=== PATIENT | male | born 1970 | race Caucasian/White ===

== ENCOUNTER 2018-10-31 22:58 | Observation (INO) | payer OTHER ==
[2018-10-31 23:16] VITALS: BMI 32.6
--- NOTE | 2018-10-31 23:21 | PDOC ---
History of Present Illness - General Chief Complaint: Headache Stated Complaint: FAINT Time Seen by Provider: 10/31/18 23:16 History Source: Patient Exam Limitations: No Limitations - History of Present Illness Initial Comments: 48 yo M w a pmh of AFIB and an appendectomy presents to the ER with Left sided chest discomfort saying he believes he had a mini heart attack yesterday. He states that he has had Afib for many years and he is supposed to be taking amiodorone and elliquis for the Afib but he has not taken the meds for a long time because he doesn't like the way it feels. He admits to an episode of chest pain yesterday that was associated with radiation to his chin and down his left arm associated with left arm numbness and tingling. During the episode yesterday he states he felt nauseous but did not vomit, and was sweating much more than usual. Today he also experienced an episode of chest discomfort rated 3/10 in intensity and was also associated with mild radiation to his left jaw and down his left arm. He did not take any medications for it. He denies that the chest pain is brought on by physical activity. He endorses frequent episodes of shortness of breath whenever this chest discomfort comes on. He denies recent fevers, chills, infections, headache, blurry vision, neck pain , abdominal pain, diarrhea, constipation, dysuria, frequency, urgency, or vertigo. PCP: Trever Lee PSH: Appendectomy, Spinal fusion, R shoulder surgery Social Hx: Denies smoking, drinking, or other substance usage. Allergies: Azithromycin Past History - Past Medical History Allergies/Adverse Reactions: Allergies Allergy/AdvReac Type Severity Reaction Status Date / Time azithromycin [From Zithromax] Allergy Mild Hives Verified 11/03/14 06:26 Home Medications: Ambulatory Orders Oxycodone HCl/Acetaminophen [Oxycodone-Acetaminophen 10-325] 1 each PO QID PRN # 15 tablet 06/22/14 Cholecalciferol (Vitamin D3) [Vitamin D] 5,000 unit PO DAILY 10/24/14 Cyclobenzaprine HCl [Flexeril -] 10 mg PO DAILY PRN 10/24/14 Verapamil HCl [Verapamil ER] 120 mg PO DAILY 10/24/14 Oxycodone HCl/Acetaminophen [Percocet 5/325 -] 1 - 2 tab PO Q6H #20 tab Anemia: No Asthma: No Cancer: No Cardiac Disorders: Yes (afib dx 10/30) CVA: No COPD: No CHF: No Dementia: No Diabetes: No GI Disorders: No Disorders: No HTN: No Hypercholesterolemia: No Liver Disease: No Seizures: No Thyroid Disease: No - Surgical History Abdominal Surgery: No Appendectomy: No Cardiac Surgery: No Cholecystectomy: No Lung Surgery: No Neurologic Surgery: No Orthopedic Surgery: Yes (Right Rotator Cuff Repair) - Reproductive History Testicular Surgery: No Testicular Torsion: No - Suicide/Smoking/Psychosocial Hx Smoking History: Never smoked Have you smoked in the past 12 months: No Information on smoking cessation initiated: No Hx Alcohol Use: Yes ("occasional") Drug/Substance Use Hx: No Substance Use Type: None Hx Substance Use Treatment: No Review of Systems - Review of Systems Able to Perform ROS?: Yes Comments:: CONSTITUTIONAL: Absent: fever, no chills, no fatigue EYES: Absent: visual changes ENT: Absent: ear pain, no sore throat CARDIOVASCULAR: Present: chest pain, palpitations RESPIRATORY: Present: SOB Absent: cough GI: Present: Nausea Absent: abdominal pain, no vomiting, no constipation, no diarrhea GENITOURINARY: Absent: dysuria, no frequency, no hematuria MUSKULOSKELETAL: Absent: back pain, no arthralgia, no myalgia SKIN: Absent: rash NEURO: Absent: headache *Physical Exam - Vital Signs Last Vital Signs Temp Pulse Resp BP Pulse Ox 97.8 F 76 20 132/87 98 10/31/18 23:12 10/31/18 23:12 10/31/18 23:12 10/31/18 23:12 10/31/18 23:12 - Physical Exam Comments: GENERAL: Well-appearing, well-nourished. No apparent distress. HEENT: Normocephalic, atraumatic. PERRL, EOM intact. CARDIOVASCULAR: Normal S1, S2. Regular rate and rhythm. PULMONARY: No evidence of respiratory distress. Lungs clear to auscultation bilaterally. No wheezing, rales or rhonchi. ABDOMEN: Soft, non-distended, non-tender. EXTREMITIES: Normal ROM in all four extremities. No gross deformities. SKIN: Skin is sweaty. Warm. No rash NEUROLOGICAL: No focal neurological deficits. CN 2-12 grossly intact. Gait is normal without ataxia. Moderate Sedation - Procedure Monitoring Vital Signs: Procedure Monitoring Vital Signs Temperature 97.8 F 10/31/18 23:12 Pulse Rate 76 10/31/18 23:12 Respiratory Rate 20 10/31/18 23:12 Blood Pressure 132/87 10/31/18 23:12 O2 Sat by Pulse Oximetry (%) 98 10/31/18 23:12 Heart Score/ECG Review - History History: Highly suspicious - Electrocardiogram EKG: Normal - Age Age: 45-65 - Risk Factors Risk Factors Heart Score: Yes Positive family hx of cardiac disease Based on the list above the patient has:: 1-2 risk factors - Troponin Troponin: </= normal limit - Score Heart Score - Total: 4 - ECG Intrepretation Rhythm: Regular Rhythm - Belden Belden: Normal - ST and T Early Repolarization: No Non Specific ST-T Wave changes: No - ECG Impressions Normal ECG: Yes Non-specific ST Elevation: No ED Treatment Course - LABORATORY CBC & Chemistry Diagram: 11/01/18 00:03 11/01/18 00:03 Medical Decision Making - Medical Decision Making 48 yo M w a pmh of AFIB and an appendectomy presents to the ER with Left sided chest discomfort saying he believes he had a mini heart attack yesterday. He states that he has had Afib for many years and he is supposed to be taking amiodorone and elliquis for the Afib but he has not taken the meds for a long time because he doesn't like the way it feels. He admits to an episode of chest pain yesterday that was associated with radiation to his chin and down his left arm associated with left arm numbness and tingling. During the episode yesterday he states he felt nauseous but did not vomit, and was sweating much more than usual. Today he also experienced an episode of chest discomfort rated 3/10 in intensity and was also associated with mild radiation to his left jaw and down his left arm. He did not take any medications for it. He denies that the chest pain is brought on by physical activity. He endorses frequent episodes of shortness of breath whenever this chest discomfort comes on. VS: WNL DDx IBNLT: ACS/NM, Afib, arrhythmia, Pneumothorax, PNA, CVA/TIA, PE Plan: Labs, EKG, CXR, Cardiac monitoring, aspirin, re-assess. Labs unremarkable. Trop 1 negative. EKG - Normal sinus. HEART score - 4 - Will admit patient to Tele Obs for further cardio workup. *DC/Admit/Observation/Transfer Diagnosis at time of Disposition: Chest pain - Discharge Dispostion Condition at time of disposition: Stable Decision to Admit order: Yes - Referrals Referrals: Trever Bowman MD [Primary Care Provider] - - Patient Instructions - Post Discharge Activity
[2018-10-31] MEDS ORDERED: ASPIRIN 81 MG CHEWABLE TABLETS PO ONE (23:39)
[2018-10-31] MEDS ORDERED: ASPIRIN 81 MG CHEWABLE TABLETS ONE (23:57)
[2018-11-01 00:29] LABS: BASO % 0.5 % (0-2.0); EOS % 2.3 % (0-4.5); HEMATOCRIT 46.2 % (35.4-49); HEMOGLOBIN 16.5 GM/dL (11.7-16.9); LYMPH % 19.7 % (8-40); MCH 33.1 pg (25.7-33.7); MCHC 35.6 g/dl (32.0-35.9); MEAN CELL VOLUME 92.8 fl (80-96); MEAN PLT VOLUME 8.5 fl (7.5-11.1); NEUT % 68.5 % (42.8-82.8); PLATELET COUNT 257 K/MM3 (134-434); RBC 4.98 M/mm3 (4.00-5.60); RDW 13.4 % (11.9-15.9); WHITE BLOOD COUNT 10.2 K/mm3 (4.0-10.0)
[2018-11-01 00:41] LABS: INR 1.09 (0.83-1.09); PROTHROMBIN TIME (PATIENT) 12.9 SEC (9.7-13.0)
[2018-11-01 01:00] LABS: ALBUMIN 4.4 g/dl (3.4-5.0); ALK PHOS 67 U/L (45-117); ANION GAP 6 MMOL/L (8-16); BILIRUBIN,TOTAL 0.5 mg/dL (0.2-1); BLOOD UREA NITROGEN 18 mg/dL (7-18); CALCIUM 9.1 mg/dL (8.5-10.1); CHLORIDE 102 mmol/L (98-107); CO2 30 mmol/L (21-32); GLUCOSE,RANDOM 102 mg/dL (74-106); MAGNESIUM 2.4 mg/dL (1.8-2.4); POTASSIUM 4.1 mmol/L (3.5-5.1); SGOT/AST 21 U/L (15-37); SGPT/ALT 31 U/L (13-61); SODIUM 139 mmol/L (136-145); TOT PROT 7.3 g/dl (6.4-8.2)
--- NOTE | 2018-11-01 01:29 | PDOC ---
Attending Attestation - Resident Resident Name: Douglas Tran - ED Attending Attestation I have performed the following: I have examined & evaluated the patient, The case was reviewed & discussed with the resident, I agree w/resident's findings & plan, Exceptions are as noted - HPI HPI: 11/01/18 01:25 48 yo male with h/o afib, used to be on amiodarone stopped taking due to feeling off after taking it. here with c/o paresthesia left face and neck and left arm. in addition had left sided chest pain. pt states he becamse diaphoretic at the time. believes he has been in afib for last two weeks. describes frequent palpitations. no f/c no sob. positive family h/o CAD grandfather mi in 50's. pt states he had a stress test 5 yrs ago. no other complaints. no leg swelling. has been decreasing amount of caffeiene. scheduled for outpt eval for ablation 11/05 [facility]. - Physicial Exam PE: 11/01/18 01:29 awake alert lungs clear bilaterally heart rrr no mrg abd soft nt nd. ext wwp no edema. no calf tenderness. nuero alert oriented x 3 facies symmetric. speech clear. skin warm and dry. - Medical Decision Making 11/01/18 01:30 differential afib, angina, electrlyte abnormality, cervical radiculopathy causing arm paresthesia. anemia. plan labs ekg cxr . initial trop negativ.e cxr unremarkable. jose guadalupe acuna here. will admit to to story and risk factors for cad, also concerns for uncontrolle dafib, currently in sinus rhythm. Heart Score/ECG Review #1 General ECG Interpretation: Sinus Rhythm, Normal Rate, Normal Intervals, No acute ischemic changes
[2018-11-01] MEDS ORDERED: ACETAMINOPHEN 325 MG TABLET (FP) PO PRN (02:34)
--- NOTE | 2018-11-01 02:48 | HP ---
CHIEF COMPLAINT: chest pain and L facial pain PCP: Dr. Everett Cardio: Dr. Rodrigues Neuro: Dr. Jesse Lai HISTORY OF PRESENT ILLNESS: 48M w/ pmhx of a fib, GERD, carpal tunnel, peripheral neuropathy presented to the ED after complaints of L facial paresthesias and L sided chest discomfort. Pt reports that he recently saw the dentist and was found to have a tooth infection. He completed 5 day course of PO Amoxocillin, however since he still had persistent tooth pain, he took an extra 3 days of Amoxicillin that was originally prescribed for his daughter. Despite the full 8 days of antibiotics, he is still complaining of L sided jaw pain around the site of the tooth and now has a tingling feeling that runs from his L jaw down to his mandible as well as up to the L temporal region. A combination of both his facial paresthesia and persistent chest discomfort which he attributes to his a. fib is what prompted the patient to be evaluated in the ED. Pt states he has had ongoing chest discomfort/irritation for the past 3 days starting on the L side radiating down his L arm. He says the chest pain is worsened after eating. He also states he has been "in and out of a. fib" for the past couple of weeks and feels "anxiety and doom" when he has his a. fib episodes. He also is non-compliant with his a fib medication for the past 2 months as they made him feel as if he was trembling inside. Pt follows up with his fire engineer Dr. Rodrigues and states he wants to have an ablation done rather than stay on his medications. ER course was notable for: (1) WBC 10.2, Trop neg x1, EKG showed NSR, HR 68 bpm, QTc 442 ms (2) Aspirin 162 mg given (3) Recent Travel: Denies PAST MEDICAL HISTORY: A. 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 Family History: Grandfather- [place]; at 50 Mom- Breast/cervical cx, at 47 Allergies azithromycin [From Zithromax] Allergy (Mild, Verified 11/03/14 06:26) Hives HOME MEDICATIONS: Home Medications Medication Instructions Recorded Oxycodone HCl/Acetaminophen 1 each PO QID PRN #15 tablet 06/22/14 [Oxycodone-Acetaminophen 10-325] Cholecalciferol (Vitamin D3) 5,000 unit PO DAILY 10/24/14 [Vitamin D] Diazepam [Valium] 5 mg PO Q8H PRN 11/01/18 Gabapentin 600 mg PO TID 11/01/18 REVIEW OF SYSTEMS CONSTITUTIONAL: Denies fever, chills, diaphoresis, generalized weakness, malaise , loss of appetite, weight change HEENT: Admits to L sided tooth pain, does not chew food on L side; Denies rhinorrhea, nasal congestion, throat pain, throat swelling, visual changes CARDIOVASCULAR: Admits to chest discomfort radiating to L arm, admits to irregular heart rate; Denies syncope, palpitations, irregular heart rate, lightheadedness, peripheral edema RESPIRATORY: Denies cough, shortness of breath, dyspnea with exertion, orthopnea GASTROINTESTINAL: Denies abdominal pain, abdominal distension, nausea, vomiting , diarrhea, constipation GENITOURINARY: Denies dysuria, frequency, urgency, hesitancy, hematuria MUSCULOSKELETAL: Admits to chronic b/l LE peripheral neuropathy; Admits to L sided neck pain as well as chronic lumbar back pain NEUROLOGIC: Admits to increased sensation on L side of face and temporal region , Admits to headache and dizziness; Denies seizure, mental status changes, bladder or bowel incontinence PHYSICAL EXAMINATION Vital Signs - 24 hr 10/31/18 11/01/18 11/01/18 23:12 00:30 01:55 Temperature 97.8 F Pulse Rate 76 Pulse Rate [ 78 72 Apical] Respiratory 20 14 15 Rate Blood Pressure 132/87 Blood Pressure 106/70 104/76 [Right Arm] O2 Sat by Pulse 98 99 97 Oximetry (%) GENERAL: AAOx3. NAD. Comfortable, well-appearing male. Pleasant. HEENT: AT/NC. EOMI. MARIJA. Moist mucus membranes. NECK: Normal range of motion, supple. Palpable LN felt on L side of neck. LUNGS: CTA B/L. No wheezes/crackles noted. Symmetric chest rise. HEART: RRR. Normal S1, S2. No murmurs noted. ABDOMEN: Soft, nondistended. Slight TTP in mid-epigastric region. +BS in all 4 Qs. No masses noted. MUSCULOSKELETAL: Normal range of motion at all joints. No bony deformities or tenderness. No CVA tenderness. UPPER EXTREMITIES: 2+ pulses, warm, well-perfused. No cyanosis. No clubbing. No peripheral edema. LOWER EXTREMITIES: 2+ pulses, warm, well-perfused. No calf tenderness. No peripheral edema. NEUROLOGICAL: Normal speech. 5/5 muscle strength in u/l b/l extremities. Facial muscles intact. Tongue midline. SKIN: Warm, dry, normal turgor, no rashes or lesions noted, normal capillary refill. Laboratory Results - last 24 hr 11/01/18 11/01/18 11/01/18 00:03 00:03 00:03 WBC 10.2 H RBC 4.98 Hgb 16.5 Hct 46.2 D MCV 92.8 MCH 33.1 MCHC 35.6 RDW 13.4 Plt Count 257 D MPV 8.5 Absolute Neuts (auto) 7.0 Neutrophils % 68.5 Lymphocytes % 19.7 D Monocytes % 9.0 Eosinophils % 2.3 Basophils % 0.5 Nucleated RBC % 0 PT with INR 12.90 INR 1.09 PTT (Actin FS) Sodium 139 Potassium 4.1 Chloride 102 Carbon Dioxide 30 Anion Gap 6 L BUN 18 Creatinine 1.0 Creat Clearance w eGFR > 60 Random Glucose 102 Calcium 9.1 Magnesium 2.4 Total Bilirubin 0.5 AST 21 ALT 31 Alkaline Phosphatase 67 Creatine Kinase 89 Troponin I < 0.02 Total Protein 7.3 Albumin 4.4 11/01/18 00:03 WBC RBC Hgb Hct MCV MCH MCHC RDW Plt Count MPV Absolute Neuts (auto) Neutrophils % Lymphocytes % Monocytes % Eosinophils % Basophils % Nucleated RBC % PT with INR INR PTT (Actin FS) 28.4 Sodium Potassium Chloride Carbon Dioxide Anion Gap BUN Creatinine Creat Clearance w eGFR Random Glucose Calcium Magnesium Total Bilirubin AST ALT Alkaline Phosphatase Creatine Kinase Troponin I Total Protein Albumin CONSULT: Cardio- Dr. Ortiz IMAGING: * EKG: NSR, HR 76, QTc 436 ms, no ST-T changes * Head CT: pending ASSESSMENT/PLAN: 48M w/ pmhx of a fib, GERD, carpal tunnel, peripheral neuropathy presented to the ED after complaints of L facial paresthesias and L sided chest discomfort. #L facial paresthesia; likely 2/2 dental infection affecting nerve root; r/o stroke -Pt still complains of persistent pain around site of tooth; was only given Amoxicillin. Facial paresthesia may likely be related to tooth infection, however, since pt has been non-compliant with a fib medication, he has a high risk of stroke and so must r/o possible stroke etiology as cause of his symptoms. -Clindamycin 450 TID for anaerobic coverage; will need outpatient dental follow up -NIHSS 0. Head CT ordered; final results pending -Carotid duplex ordered -Lipid panel/ESR/CRP #Chest discomfort; likely due to atrial fib vs. GERD; r/o ACS -EKG unremarkable; NSR, HR [address]-T changes; Trops neg x1 -Pt admits to non-compliance with a fib meds; symptoms may be due to paroxsymal episodes Restart home meds: Amiodarone 200, Eliquis 500 BID -Tele monitoring -Cardio consult ordered -repeat trops in AM -CBC/CMP, Mag, Phos ordered #Peripheral neuropathy; 2/2 lumbar spinal fusion Cont home med: Gabapentin 600 TID #Prophylaxis -cont home Eliquis 5 BID #FEN -PO hydration -recheck lytes in AM -Regular diet dispo -admit to tele obs Visit type - Emergency Visit Emergency Visit: Yes ED Registration Date: 11/01/18 Care time: The patient presented to the Emergency Department on the above date and was hospitalized for further evaluation of their emergent condition. - New Patient This patient is new to me today: Yes Date on this admission: 11/02/18 - Critical Care Critical Care patient: No
--- NOTE | 2018-11-01 04:49 | PN ---
Teaching Attending Note Name of Resident: Diane Fletcher ATTENDING PHYSICIAN STATEMENT I saw and evaluated the patient. I reviewed the resident's note and discussed the case with the resident. I agree with the resident's findings and plan as documented. SUBJECTIVE: Seen and examined; please see resident note for further historical documentation. Briefly, this is a 48 y/o male presenting with multiple complaints. The first involves parasthesias in his L-face and L-arm. He has been treated as an outpatient for a dental infection (? abscess?) and has followup next week; has been on amoxicillin. Parasthesia started around the site of this infection several days ago and extended at first down towards his mandible but then up; he can swallow, no purulence, etc. It is the lower pre- molar area on the L-mandibular area and is tender to palpation. He also had parasthesias/pain to palpation along the entirety of his LUE extending from his neck to his shoulders; no loss of function or weakness, sensation is still in tact but feels tingly and will be painful to palpate if touched in said area. Never had this before, never saw anyone else for this, etc. He upfront tells us that he is very concerned he is having a stroke due to this due to his noncompliance with all his Afib medications. He also developed some L-sided somewhat typical, non-reproducible chest discomfort. Nothing makes it really better or worse, hasn't had similar pain in the past. Did happen somewhat at rest. Not his focus when encountered in the ER. No SOB, etc. States he had a stress test 5 years ago which was negative for any significant findings. He has afib and is scheduled for an ablation this [facility]; he has not taken his medications in months (and endorses compliance for 1-2 days only when he first got them) due to the fact that he doesn't like how they make him feel. He states he can tell when he is in and out of afib and that he has mostly been in it; he is noted to be in NSR in the ER. 10 sys ROS done and neagtive aside from HPI PMH, PSH, Family hx, Social hx reviewed Medication list pending reconciliation OBJECTIVE: VS, labs, imaging reviewed NAD, AAO, resting comfortably in bed RRR s1/2 no mgr; NSR noted Lungs CTAB w/ no fnd NIHSS 0; CN2-12 wnl, no fnd NC AT EOMI PERRLA NT ND +BS Normal mood, appropriate behavior EKG Reviewed CXR Reviewed No acute findings head CT prelim read ASSESSMENT AND PLAN: Patient presents with parasthesias in L-face and L-arm; recent treatment for dental infection for which he is still symptomatic and this is in said distribution. He also is having some chest discomfort and has been off all his afib medications. 1) Parasthesias, face and arm -Unclear etiology. CVA less likely but given untreated afib he is at increased risk so will need to work this up. Place him on tele, neuro checks and seizure precautions. Echo, carotid dopplers, MRI. Consider neurology consultation. -Would consider, especially for the facial parasthesias, possible relation with his dental infection. Has been on abx but from what he described I am not convinced he was completely covered (need to check old records but tells me he took augmentin, then took someone else's augmentin for ~7 days). I changed his abx to clinda and we should discuss the case with his dentist in the AM. -For the arm, can consider musculoskeletal cause if neuro workup negative. 2) Chest Pain in Adult -Monitor on telemetry, trend troponin, repeat EKG. Nitro if further chest pain. 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 FENA -PO flui
[2018-11-01] MEDS ORDERED: CLINDAMYCIN HCL 150 MG CAPSULE (FP) PO SCH (06:00)
[2018-11-01] MEDS: GABAPENTIN 300 MG CAPSULE (FP) PO SCH ×2 (06:55→16:41)
[2018-11-01 09:04] LABS: BASO % 0.7 % (0-2.0); HEMATOCRIT 43.6 % (35.4-49); HEMOGLOBIN 15.6 GM/dL (11.7-16.9); LYMPH % 17.7 % (8-40); MCHC 35.9 g/dl (32.0-35.9); MEAN PLT VOLUME 8.2 fl (7.5-11.1); MONO % 8.8 % (3.8-10.2); NEUT % 69.8 % (42.8-82.8); PLATELET COUNT 233 K/MM3 (134-434); RBC 4.74 M/mm3 (4.00-5.60); RDW 13.3 % (11.9-15.9); WHITE BLOOD COUNT 9.1 K/mm3 (4.0-10.0)
[2018-11-01 09:36] LABS: ALBUMIN 4.2 g/dl (3.4-5.0); ALK PHOS 60 U/L (45-117); ANION GAP 4 MMOL/L (8-16); BILIRUBIN,TOTAL 0.8 mg/dL (0.2-1); BLOOD UREA NITROGEN 19 mg/dL (7-18); CALCIUM 8.9 mg/dL (8.5-10.1); CHLORIDE 105 mmol/L (98-107); CO2 30 mmol/L (21-32); GLUCOSE,RANDOM 101 mg/dL (74-106); MAGNESIUM 2.1 mg/dL (1.8-2.4); PHOSPHOROUS 4.3 mg/dL (2.5-4.9); POTASSIUM 4.3 mmol/L (3.5-5.1); SGOT/AST 14 U/L (15-37); SGPT/ALT 25 U/L (13-61); SODIUM 139 mmol/L (136-145); TOT PROT 6.9 g/dl (6.4-8.2)
--- NOTE | 2018-11-01 09:46 | EKG ---
Test Reason : Blood Pressure : / mmHG Vent. Rate : 076 BPM Atrial Rate : 076 BPM P-R Int : 158 ms QRS Dur : 076 ms QT Int : 388 ms P-R-T Axes : 037 065 034 degrees QTc Int : 436 ms NORMAL SINUS RHYTHM NORMAL ECG WHEN COMPARED WITH ECG OF 17-JUN-2014 22:20, QT HAS SHORTENED Confirmed by CONCHITA BELL MD ([id number]) on 11/01/2018 9:45:34 AM Referred By: Confirmed By:CONCHITA BELL MD
[2018-11-01] MEDS ORDERED: AMIODARONE HCL 200 MG TABLET (FP) PO SCH (10:00)
[2018-11-01] MEDS ORDERED: CHOLECALCIFEROL (VITAMIN D3) 1,000 UNIT TABLET (FP) PO SCH (10:00)
[2018-11-01] MEDS ORDERED: APIXABAN 5 MG TABLET PO SCH (10:00)
[2018-11-01] MEDS ORDERED: APIXABAN 5 MG TABLET PO ONE (10:42)
--- NOTE | 2018-11-01 11:47 | CON.CARD ---
Cardiology Consult (text) - Consultation Consultation Note: cc: cp, arm pain hpi: 48 m hx pafib, neuropathy, multiple spine surgeries, here with cp, arm pain. Pt with chronic neuropathy pains, yesterday felt similar nerve pain in left arm and left chest. Arm was tender to touch. Had recent tooth infection and on abx and also felt shooting pains in left face and head. No sob dizzy loc pnd orthopnea le edema. Feels palps when has afib. 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 pmh: per hpi psh: per hpi, appendectomy social: no tob fam: no premature cad, scd ros: per hpi; no nvd, vision change, gib hematuria dysuria wt loss meds: Home Medications Medication Instructions Recorded Oxycodone HCl/Acetaminophen 1 each PO QID PRN #15 tablet 06/22/14 [Oxycodone-Acetaminophen 10-325] Cholecalciferol (Vitamin D3) 5,000 unit PO DAILY 10/24/14 [Vitamin D] Amiodarone HCl 200 mg PO DAILY 11/01/18 Apixaban [Eliquis] 5 mg PO BID 11/01/18 Diazepam [Valium] 5 mg PO Q8H PRN 11/01/18 Gabapentin 600 mg PO TID 11/01/18 pe: Vital Signs Period Temp Pulse Resp BP Sys/Moreno Pulse Ox Last 24 Hr 97.8 F-98.3 F 68-78 14-20 104-132/70-87 97-99 nad no jdv rrr s1s2 no mrg cta bl nl eff aaox3 no le e/c/c abd nt nd pos bs no jaundice diaphoresis pos dp pt no carotid bruits Current Medications Generic Name Dose Route Start Last Admin Trade Name Freq PRN Reason Stop Dose Admin Acetaminophen 650 mg 11/01/18 02:34 Tylenol - PO Q4H PRN HEADACHE Amiodarone HCl 200 mg 11/01/18 10:00 11/01/18 10:49 Cordarone - PO 200 mg DAILY WALLY Administration Apixaban 5 mg 11/01/18 10:00 11/01/18 10:51 Eliquis - PO 5 mg BID WALLY Administration Cholecalciferol 5,000 unit 11/01/18 10:00 11/01/18 10:52 Vitamin D3 - PO Not Given DAILY [facility] Gabapentin 600 mg 11/01/18 06:15 11/01/18 06:55 Neurontin - PO 600 mg TID WALLY Administration Rosuvastatin Calcium 40 mg 11/01/18 22:00 Crestor - PO HS WALLY Laboratory Last Values WBC 9.1 K/mm3 (4.0-10.0) 11/01/18 08:55 RBC 4.74 M/mm3 (4.00-5.60) 11/01/18 08:55 Hgb 15.6 GM/dL (11.7-16.9) 11/01/18 08:55 Hct 43.6 % (35.4-49) 11/01/18 08:55 MCV 92.0 fl (80-96) 11/01/18 08:55 MCH 33.0 pg (25.7-33.7) 11/01/18 08:55 MCHC 35.9 g/dl (32.0-35.9) 11/01/18 08:55 RDW 13.3 % (11.9-15.9) 11/01/18 08:55 Plt Count 233 K/MM3 (134-434) 11/01/18 08:55 MPV 8.2 fl (7.5-11.1) 11/01/18 08:55 Absolute Neuts (auto) 6.3 K/mm3 (1.5-8.0) 11/01/18 08:55 Neutrophils % 69.8 % (42.8-82.8) 11/01/18 08:55 Lymphocytes % 17.7 % (8-40) 11/01/18 08:55 Monocytes % 8.8 % (3.8-10.2) 11/01/18 08:55 Eosinophils % 3.0 % (0-4.5) 11/01/18 08:55 Basophils % 0.7 % (0-2.0) 11/01/18 08:55 Nucleated RBC % 0 % (0-0) 11/01/18 08:55 ESR 2 mm/hr (0-10) 11/01/18 08:55 PT with INR 12.90 SEC (9.7-13.0) 11/01/18 00:03 INR 1.09 (0.83-1.09) 11/01/18 00:03 PTT (Actin FS) 28.4 SECONDS (25.2-36.5) 11/01/18 00:03 Sodium 139 mmol/L (136-145) 11/01/18 08:55 Potassium 4.3 mmol/L (3.5-5.1) 11/01/18 08:55 Chloride 105 mmol/L (98-107) 11/01/18 08:55 Carbon Dioxide 30 mmol/L (21-32) 11/01/18 08:55 Anion Gap 4 MMOL/L (8-16) L 11/01/18 08:55 BUN 19 mg/dL (7-18) H 11/01/18 08:55 Creatinine 1.0 mg/dL (0.55-1.3) 11/01/18 08:55 Creat Clearance w eGFR > 60 (>60) 11/01/18 08:55 Random Glucose 101 mg/dL (74-106) 11/01/18 08:55 Hemoglobin A1c % 5.6 % (4.2-6.3) 11/01/18 08:30 Calcium 8.9 mg/dL (8.5-10.1) 11/01/18 08:55 Phosphorus 4.3 mg/dL (2.5-4.9) 11/01/18 08:55 Magnesium 2.1 mg/dL (1.8-2.4) 11/01/18 08:55 Total Bilirubin 0.8 mg/dL (0.2-1) 11/01/18 08:55 AST 14 U/L (15-37) L 11/01/18 08:55 ALT 25 U/L (13-61) 11/01/18 08:55 Alkaline Phosphatase 60 U/L (45-117) 11/01/18 08:55 Creatine Kinase 89 U/L (26-308) 11/01/18 00:03 Troponin I < 0.02 ng/ml (0.00-0.05) 11/01/18 08:55 C-Reactive Protein 0.3 MG/DL (0.00-0.3) 11/01/18 08:55 Total Protein 6.9 g/dl (6.4-8.2) 11/01/18 08:55 Albumin 4.2 g/dl (3.4-5.0) 11/01/18 08:55 Triglycerides 72 mg/dL (0-150) 11/01/18 08:55 Cholesterol 153 mg/dL (50-200) 11/01/18 08:55 Total LDL Cholesterol 98 mg/dL (5-100) 11/01/18 08:55 HDL Cholesterol 43 mg/dL (40-60) 11/01/18 08:55 TSH 1.26 uIU/ml (0.358-3.74) 11/01/18 08:55 ecg: sr, nl intervals, no ischemic changes cxr: clear lungs a/p: 48 m hx pafib, neuropathy, multiple spine surgeries, here with cp, arm pain. cp: -atypical, seems neuropathy related -no signs acs, ce's neg, ecg benign -echo pending, if benign ok for dc from cardiac pov pafib: -in sr -cont home milagro and luz -pt has appt this week with EP for eval for possible ablation neuropathy, facial symptoms: -head ct w/o acute findings -neuro consulted for cva eval
--- NOTE | 2018-11-01 11:58 | PN ---
Physical Exam: SUBJECTIVE: Patient seen and examined at bedside. no acute events since admission. pt still c/o paresthesia in L temporal forehead. denies fever, chills , cp, sob, n/v/d, urinary sxs. OBJECTIVE: Vital Signs Period Temp Pulse Resp BP Sys/Moreno Pulse Ox Last 24 Hr 97.8 F-98.3 F 68-78 14-20 104-132/70-87 97-99 GENERAL: AAOx3. NAD. Comfortable, well-appearing male. Pleasant. HEENT: AT/NC. EOMI. MARIJA. MMM NECK: Normal range of motion, supple. LUNGS: CTAB HEART: RRR. Normal S1, S2. No murmurs noted. S4? extra beat/gallop? ABDOMEN: Soft, NTND +BS. No masses noted. MUSCULOSKELETAL: Normal range of motion at all joints. No bony deformities or tenderness. No CVA tenderness. UPPER EXTREMITIES: 2+ pulses, warm, well-perfused. No cyanosis. No clubbing. No peripheral edema. LOWER EXTREMITIES: 2+ pulses, warm, well-perfused. No calf tenderness. No peripheral edema. NEUROLOGICAL: CN II-XII intact. Normal speech. 5/5 muscle strength in u/l b/l extremities. decreased sensation in LLE (baseline) SKIN: Warm, dry, normal turgor, no rashes or lesions noted, normal capillary refill. Laboratory Results - last 24 hr 11/01/18 11/01/18 11/01/18 00:03 00:03 00:03 WBC 10.2 H RBC 4.98 Hgb 16.5 Hct 46.2 D MCV 92.8 MCH 33.1 MCHC 35.6 RDW 13.4 Plt Count 257 D MPV 8.5 Absolute Neuts (auto) 7.0 Neutrophils % 68.5 Lymphocytes % 19.7 D Monocytes % 9.0 Eosinophils % 2.3 Basophils % 0.5 Nucleated RBC % 0 ESR PT with INR 12.90 INR 1.09 PTT (Actin FS) Sodium 139 Potassium 4.1 Chloride 102 Carbon Dioxide 30 Anion Gap 6 L BUN 18 Creatinine 1.0 Creat Clearance w eGFR > 60 Random Glucose 102 Hemoglobin A1c % Calcium 9.1 Phosphorus Magnesium 2.4 Total Bilirubin 0.5 AST 21 ALT 31 Alkaline Phosphatase 67 Creatine Kinase 89 Troponin I < 0.02 C-Reactive Protein Total Protein 7.3 Albumin 4.4 Triglycerides Cholesterol Total LDL Cholesterol HDL Cholesterol TSH 11/01/18 11/01/18 11/01/18 00:03 08:30 08:55 WBC RBC Hgb Hct MCV MCH MCHC RDW Plt Count MPV Absolute Neuts (auto) Neutrophils % Lymphocytes % Monocytes % Eosinophils % Basophils % Nucleated RBC % ESR PT with INR INR PTT (Actin FS) 28.4 Sodium 139 Potassium 4.3 Chloride 105 Carbon Dioxide 30 Anion Gap 4 L BUN 19 H Creatinine 1.0 Creat Clearance w eGFR > 60 Random Glucose 101 Hemoglobin A1c % 5.6 Calcium 8.9 Phosphorus 4.3 Magnesium 2.1 Total Bilirubin 0.8 AST 14 L ALT 25 Alkaline Phosphatase 60 Creatine Kinase Troponin I < 0.02 C-Reactive Protein 0.3 Total Protein 6.9 Albumin 4.2 Triglycerides Cholesterol Total LDL Cholesterol HDL Cholesterol TSH 11/01/18 11/01/18 11/01/18 08:55 08:55 08:55 WBC 9.1 RBC 4.74 Hgb 15.6 Hct 43.6 MCV 92.0 MCH 33.0 MCHC 35.9 RDW 13.3 Plt Count 233 MPV 8.2 Absolute Neuts (auto) 6.3 Neutrophils % 69.8 Lymphocytes % 17.7 Monocytes % 8.8 Eosinophils % 3.0 Basophils % 0.7 Nucleated RBC % 0 ESR 2 PT with INR INR PTT (Actin FS) Sodium Potassium Chloride Carbon Dioxide Anion Gap BUN Creatinine Creat Clearance w eGFR Random Glucose Hemoglobin A1c % Calcium Phosphorus Magnesium Total Bilirubin AST ALT Alkaline Phosphatase Creatine Kinase Troponin I C-Reactive Protein Total Protein Albumin Triglycerides 72 Cholesterol 153 Total LDL Cholesterol 98 HDL Cholesterol 43 TSH 1.26 Active Medications Generic Name Dose Route Start Last Admin Trade Name Freq PRN Reason Stop Dose Admin Acetaminophen 650 mg 11/01/18 02:34 Tylenol - PO Q4H PRN HEADACHE Amiodarone HCl 200 mg 11/01/18 10:00 11/01/18 10:49 Cordarone - PO 200 mg DAILY WALLY Administration Apixaban 5 mg 11/01/18 10:00 11/01/18 10:51 Eliquis - PO 5 mg BID WALLY Administration Cholecalciferol 5,000 unit 11/01/18 10:00 11/01/18 10:52 Vitamin D3 - PO Not Given DAILY [facility] Gabapentin 600 mg 11/01/18 06:15 11/01/18 06:55 Neurontin - PO 600 mg TID WALLY Administration Rosuvastatin Calcium 40 mg 11/01/18 22:00 Crestor - PO HS WALLY ASSESSMENT/PLAN: 48M w/ pmhx of a-fib, GERD, carpal tunnel, peripheral neuropathy 2/2 s/p L spinal fusion, recent dental infx s/p augmentin, p/w L facial paresthesias and L sided chest discomfort x3d. #L facial paresthesia; possibly 2/2 resolving dental infection affecting nerve root vs symptomatic from A-fib vs TIA. Pt p/w persistent pain around site of tooth. however, since pt has been non- compliant with a fib medication, he has a high risk of stroke and so must r/o possible stroke etiology as cause of his symptoms. stroke less likely given grossly nl neuro exam and w/o deficits in a clear stroke like pattern and neg imaging so far. -s/p Aspirin 162 mg in ED -dc Clindamycin pt not septic and recently finished abx course; will need outpatient dental follow up -NIHSS 0. Head CT neg, CXR nl -Carotid duplex ordered -MRI brain and c-spine -pt refusing -echo nl, EF 55-60% -Lipid panel wnl -ESR/CRP wnl -A1c 5.6 -neuro consult -speech swallow -PT eval -start crestor 40 HS #Chest discomfort; likely due to atrial fib vs. GERD; r/o ACS -s/p Aspirin 162 mg in ED -EKG unremarkable; NSR, HR [address]-T changes; Trops neg x2 -Pt admits to non-compliance with a fib meds; symptoms may be due to paroxsymal episodes -c/w home meds: Amiodarone 200, Eliquis 500 BID -Tele monitoring -Cardio consult -TSH wnl GERD protonix 40qd #Peripheral neuropathy; 2/2 lumbar spinal fusion Cont home med: Gabapentin 600 TID #Prophylaxis -cont home Eliquis 5 BID #FEN -PO hydration -replete prn -Regular diet dispo -tele obs for at least 48 hr to r/o CVA/TIA Visit type - Emergency Visit Emergency Visit: Yes ED Registration Date: 11/01/18 Care time: The patient presented to the Emergency Department on the above date and was hospitalized for further evaluation of their emergent condition. - New Patient This patient is new to me today: Yes Date on this admission: 11/01/18 - Critical Care Critical Care patient: No
--- NOTE | 2018-11-01 12:24 | ECHO ---
Name: ROMAINE PEACOCK Exam:Adult Echocardiogram Study Date: 11/01/2018 10:50 AM Age: 48 yrs Reason For Study: Chest pain Height: 68 in Weight: 215 lb BSA: 2.1 m2 MMode/2D Measurements & Calculations IVSd: 1.0 cm Ao root diam: 3.2 cm LVIDd: 5.3 cm LA dimension: 4.0 cm LVIDs: 3.6 cm LVPWd: 1.0 cm EDV(Teich): 133.6 ml LVOT diam: 2.4 cm ESV(Teich): 54.3 ml Doppler Measurements & Calculations MV E max russel: 63.7 cm/sec Ao V2 max: 82.7 cm/sec MV A max russel: 36.0 cm/sec Ao max P.7 mmHg MV E/A: 1.8 MV dec time: 0.20 sec VINAY(V,D): 3.4 cm2 LV V1 max P.7 mmHg TR max russel: 221.3 cm/sec LV V1 max: 64.5 cm/sec TR max P.6 mmHg Med Peak E' Russel: 6.1 cm/sec Med E/e': 10.4 Lat Peak E' Russel: 10.2 cm/sec Lat E/e': 6.2 Procedure A complete two-dimensional transthoracic echocardiogram was performed (2D, M-mode, Doppler and color flow Doppler). Left Ventricle The left ventricular size, thickness and function are normal. The left ventricular ejection fraction is normal. Ejection Fraction = 55-60%. No regional wall motion abnormalities noted. Right Ventricle The right ventricle is normal in size and function. Atria Normal left and right atrial size and function. Mitral Valve There is no mitral regurgitation noted. Tricuspid Valve There is trace tricuspid regurgitation. Right ventricular systolic pressure is normal. Aortic Valve No hemodynamically significant valvular aortic stenosis. No aortic regurgitation is present. Pulmonic Valve There is no pulmonic valvular regurgitation. Great Vessels The aortic root is normal size. Pericardium/Pleura There is no pericardial effusion. Interpretation Summary The left ventricular size, thickness and function are normal The right ventricle is normal in size and function. There is trace tricuspid regurgitation. MD Juan José Pulido 11/01/2018 12:23 PM
--- NOTE | 2018-11-01 13:24 | PN ---
Teaching Attending Note Name of Resident: David Lizarraga ATTENDING PHYSICIAN STATEMENT I saw and evaluated the patient. I reviewed the resident's note and discussed the case with the resident. I agree with the resident's findings and plan as documented. SUBJECTIVE:continues to have parathesia in the L temporal forehead. CP resolved. denies Cp, SOB, fever, chills, OBJECTIVE: Last Vital Signs Temp Pulse Resp BP Pulse Ox 98.3 F 68 16 112/77 98 11/01/18 07:03 11/01/18 07:03 11/01/18 07:03 11/01/18 07:03 11/01/18 07:03 General NAD ASSESSMENT AND PLAN: 48yo M with PMH afib not compliant with medications presenting with L facial numbness and CP 1. CP-most likely feeling uncontrolled afib. low risk for ACS. trop neg x2. echo with no WMA. seen by cardio no further workup at this time 2. Facial parathesia- low suspicion for CVA. pt now changed his story that he was not having numbness down his arm but pain when he had the CP last night. MRI was offered which he refused. Neuro consulted and dx with trigeminal neuralgia and started on gabapentin. 3. Afib-not compliant at home. low [id number] score. possibly on eliquis due to anticipated ablation. encouraged to resume home medications and f/u with cardio. has been discussion about ablation in the future. TSH WNL. cardio on board 4. d/c home with cardio and neuro follow up
--- NOTE | 2018-11-01 14:15 | CONSULT ---
Consult - text type - Consultation Consultation Note: NEUROLOGY CONSULT APPRECIATED: Events reviewed and discussed with staff. Cardiology consult read and appreciated. 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 He is here after worsening "tingling" sensation in his left arm and L cheek radiating up to the top of his L yazdanism x 1 week. Yesterday evening, he felt sudden, brief "whole body electricity-shock" sensation mainly in his neck that brought him to the hospital. He attributes it to not taking his eliquis or amiodorane for his afib over that time. He reports he saw his dentist and was told he had an infection in the tooth and was provided antibiotics. He notes it has started to reside and remains just in the L cheek and is worsened by chewing. PMHX: HTN, Afib, Chronic neck/back pain, "B/L CTS" Medications: cholecalciferol 5,000 units daily, verapamil, cyclobenzaprine, oxycodone (seeing neurology/pain management (Dr. Jesse Lai) Surgical hx: LS Laminectomy x 2 (Dr. Danny Brito) with residual left ankle weakness. R shoulder surgery Head CT: normal study Carotid duplex: no significant stenosis EKG: normal sinus rhythm Review of systems significant for migraines since adolescence attributed to " too much salt" or "perfumes." He reports a work-related injury at 05/22 site November 2012 with worsening of migraines, new onset neck, low back pain and paraesthesia. He attributes his now chronic, daily neck pain to his headaches that are usually in the occipital region that occur daily. He notes at least 3 times a year, they cause photophobia, phonophobia, nausea, vomiting, kinesiophobia and can last up to 3 days. He reports "tingling" sensations in his hands and legs, now constant in nature and awakening him from sleep. NARINDER: (-)bruit, Cor reg, reduced ROM of neck, (-) SLR, (-) TMJ tenderness, (+/-) Tinel's R wrist NEURO EXAM: Mentation/Speech: Ox [facility]. October. 2018 [facility] PMURT 11/11 recall at 3. CNII-CNXII: EOMI without nystagmus. Full watts appreciated. Motor: No drift. Strength preserved in ABP and intrinsics B/L. L DF 4-/5. Reflexes normal but L AJ absent. Toes downgoing Coordination: No FTN dystaxia. Romberg - Sensation: Reduced sensation to vibration up to left bryant. Gait: Normal, difficulty on toes L >R. Can walk on heels and tandem gait without difficulty. Impression: Post-traumatic Migraines Residual Left L5 radiculopathy Probable Restless Limbs Syndrome (RLS) vs. B/L Carpal Tunnel Syndrome (CTS) R/O Trigeminal Neuralgia Suggest: Continue Gabapentin 600 mg TID for now Agree with cardio to continue Eliquis and amiodorane for afib Neuro f/u as outpatient for rx for migraines, paraesthesia and facial pain. and EMG/NCS for CTS, neuropathy, and radiculopathy. Thank you very much, Casey Alegria MD
--- NOTE | 2018-11-01 15:44 | DS ---
Physical Exam: SUBJECTIVE: Patient seen and examined at bedside. no acute events since admission. pt still c/o paresthesia in L temporal forehead. denies fever, chills , cp, sob, n/v/d, urinary sxs. pt has appt this week with EP for eval for possible ablation OBJECTIVE: Vital Signs Period Temp Pulse Resp BP Sys/Moreno Pulse Ox Last 24 Hr 97.8 F-98.3 F 68-78 14-20 104-132/70-87 97-99 PHYSICAL EXAM GENERAL: AAOx3. NAD. Comfortable, well-appearing male. Pleasant. HEENT: AT/NC. EOMI. MARIJA. MMM NECK: Normal range of motion, supple. LUNGS: CTAB HEART: RRR. Normal S1, S2. No murmurs noted. S4? extra beat/gallop? ABDOMEN: Soft, NTND +BS. No masses noted. MUSCULOSKELETAL: Normal range of motion at all joints. No bony deformities or tenderness. No CVA tenderness. UPPER EXTREMITIES: 2+ pulses, warm, well-perfused. No cyanosis. No clubbing. No peripheral edema. LOWER EXTREMITIES: 2+ pulses, warm, well-perfused. No calf tenderness. No peripheral edema. NEUROLOGICAL: CN II-XII intact. Normal speech. 5/5 muscle strength in u/l b/l extremities. decreased sensation in LLE (baseline) SKIN: Warm, dry, normal turgor, no rashes or lesions noted, normal capillary refill. LABS Laboratory Results - last 24 hr 11/01/18 11/01/18 11/01/18 00:03 00:03 00:03 WBC 10.2 H RBC 4.98 Hgb 16.5 Hct 46.2 D MCV 92.8 MCH 33.1 MCHC 35.6 RDW 13.4 Plt Count 257 D MPV 8.5 Absolute Neuts (auto) 7.0 Neutrophils % 68.5 Lymphocytes % 19.7 D Monocytes % 9.0 Eosinophils % 2.3 Basophils % 0.5 Nucleated RBC % 0 ESR PT with INR 12.90 INR 1.09 PTT (Actin FS) Sodium 139 Potassium 4.1 Chloride 102 Carbon Dioxide 30 Anion Gap 6 L BUN 18 Creatinine 1.0 Creat Clearance w eGFR > 60 Random Glucose 102 Hemoglobin A1c % Calcium 9.1 Phosphorus Magnesium 2.4 Total Bilirubin 0.5 AST 21 ALT 31 Alkaline Phosphatase 67 Creatine Kinase 89 Troponin I < 0.02 C-Reactive Protein Total Protein 7.3 Albumin 4.4 Triglycerides Cholesterol Total LDL Cholesterol HDL Cholesterol TSH 11/01/18 11/01/18 11/01/18 00:03 08:30 08:55 WBC RBC Hgb Hct MCV MCH MCHC RDW Plt Count MPV Absolute Neuts (auto) Neutrophils % Lymphocytes % Monocytes % Eosinophils % Basophils % Nucleated RBC % ESR PT with INR INR PTT (Actin FS) 28.4 Sodium 139 Potassium 4.3 Chloride 105 Carbon Dioxide 30 Anion Gap 4 L BUN 19 H Creatinine 1.0 Creat Clearance w eGFR > 60 Random Glucose 101 Hemoglobin A1c % 5.6 Calcium 8.9 Phosphorus 4.3 Magnesium 2.1 Total Bilirubin 0.8 AST 14 L ALT 25 Alkaline Phosphatase 60 Creatine Kinase Troponin I < 0.02 C-Reactive Protein 0.3 Total Protein 6.9 Albumin 4.2 Triglycerides Cholesterol Total LDL Cholesterol HDL Cholesterol TSH 11/01/18 11/01/18 11/01/18 08:55 08:55 08:55 WBC 9.1 RBC 4.74 Hgb 15.6 Hct 43.6 MCV 92.0 MCH 33.0 MCHC 35.9 RDW 13.3 Plt Count 233 MPV 8.2 Absolute Neuts (auto) 6.3 Neutrophils % 69.8 Lymphocytes % 17.7 Monocytes % 8.8 Eosinophils % 3.0 Basophils % 0.7 Nucleated RBC % 0 ESR 2 PT with INR INR PTT (Actin FS) Sodium Potassium Chloride Carbon Dioxide Anion Gap BUN Creatinine Creat Clearance w eGFR Random Glucose Hemoglobin A1c % Calcium Phosphorus Magnesium Total Bilirubin AST ALT Alkaline Phosphatase Creatine Kinase Troponin I C-Reactive Protein Total Protein Albumin Triglycerides 72 Cholesterol 153 Total LDL Cholesterol 98 HDL Cholesterol 43 TSH 1.26 HOSPITAL COURSE: Date of Admission:11/01/18 Date of Discharge: 11/01/18 48M w/ pmhx of a-fib, GERD, carpal tunnel, peripheral neuropathy 2/2 s/p L spinal fusion, recent dental infx s/p augmentin, p/w L facial paresthesias and L sided chest discomfort x3d. Admitted for L facial paresthesia w/ chest discomfot likely 2/2 trigeminal neuralgia (per Neuro consult eval) and A-fib (med non-compliant), respectively. However, since pt has been non-compliant with a-fib medication, he has a high risk of stroke and so TIA needed to be r/o. Neuro and cardio were consulted. Pt observed on tele. VSS, grossly nl neuro exam, NIHSS 0. Pt received Aspirin 162 mg in ED. Head CT neg, CXR nl, carotid duplex no significant stenosis, and echo nl, no WMA, EF 55-60%. MRI brain and c-spine was recommended but pt refused. Lipid panel, ESR/CRP, and TSH were wnl. A1c 5.6. EKG unremarkable; NSR, HR [address]-T changes; Trops neg x2. seen by cardio no further workup at this time. [id number] score 0. possibly on eliquis due to anticipated ablation pt encouraged to resume home medications (gabapentin 600 TID, eliquis 5 BID, amio 200, etc...) pt is stable and will be d/c home with cardio and neuro follow up. pt has appt this week with EP for eval for possible ablation Minutes to complete discharge: 38 Discharge Summary Reason For Visit: CHEST PAIN Current Active Problems Chest pain (Acute) Condition: Stable - Instructions Diet, Activity, Other Instructions: you came in because you were having tingling in your Left side of jaw and forehead, you were seen by a neurologist and diagnosed with trigeminal neuralgia. You are being prescribed a medication for this called Gabapentin. Take it as prescribed. Follow up with neurologist for these symptoms. you also were feeling some chest discomfort and palpations due to your Atrial fibrillation. your Head CT and labs were normal and showed no signs of stroke or heart attack. We gave you your home amiodorone and eliquis for your A-fib and your palpations resolved. Please resume your home meds. It is very important that you take your medications as instructed. Please go to your appointment this week with your Business Improvement Manager/ Senior Net Engineer regarding possible ablation of your A-fib Please follow up with your primary care physician within 1 week Please follow up with your Senior Net Engineer within 1 week Please follow up with your Dentist within 1 week Please follow up with Neurologist Dr. Alegria within 1 week If you experience any worsening of facial tingling or numbness, or chest pain, or speech slurring, shortness of breath, nausea, vomit, diarrhea, Headache, blurry vision, please call 911 or go to the ER Referrals: Casey Alegria MD [Staff Physician] - 1 Week Juan José Pulido MD [Staff Physician] - 1 Week Trever Bowman MD [Primary Care Provider] - 1 Week Disposition: HOME - Home Medications Comprehensive Discharge Medication List: Ambulatory Orders Cholecalciferol (Vitamin D3) [Vitamin D] 5,000 unit PO DAILY 10/24/14 Amiodarone HCl 200 mg PO DAILY 30 Days #30 tablet 11/01/18 Apixaban [Eliquis] 5 mg PO BID 30 Days #60 tablet 11/01/18 Gabapentin 600 mg PO TID 11/01/18 This patient is new to me today: Yes Date on this admission: 11/01/18 Emergency Visit: Yes ED Registration Date: 11/01/18 Care time: The patient presented to the Emergency Department on the above date and was hospitalized for further evaluation of their emergent condition. Critical Care patient: No - Discharge Referral Referred to [facility] No
[2018-11-01 15:55] VITALS: BP 119/73; PULSE 67; TEMP 98.7
[2018-11-01] MEDS ORDERED: ROSUVASTATIN CA 40 MG TABLET PO SCH (22:00)
[2018-11-02] MEDS ORDERED: PANTOPRAZOLE 40 MG TABLET (FP) PO SCH (10:00)
== END 2018-11-01 16:45 | disposition home or self-care (01) ==
LOC: JER 22:58 → JERBED 11-01 01:24
PROVIDERS: ADMIT Internal Medicine; ATTEND Internal Medicine
DX: R07.89 Other chest pain (principal); I48.91 Unspecified atrial fibrillation; R20.2 Paresthesia of skin; G62.9 Polyneuropathy, unspecified; Z98.1 Arthrodesis status; Z88.1 Allergy status to other antibiotic agents; Z91.14 Patient's other noncompliance with medication regimen; M54.16 Radiculopathy, lumbar region
CPT/HCPCS: 36415; 70450-TC; 71045-TC-FY; 80053; 80061; 82550; 83036; 83721; 83735; 84100; 84443; 84484; 85025; 85610; 85651; 85730; 86140; 93005; 93010; 93306-TC; 93880-TC; 99285-25; G0378